=== PATIENT | male | born 1960 | race Caucasian/White ===

== ENCOUNTER 2018-08-01 14:47 | Emergency (ER) | payer MEDICAID, OTHER ==
[~2018-08-01] VITALS: Ht 175.3 cm; Wt 93.3 kg
[2018-08-01 14:56] VITALS: Ht 175.3 cm; Wt 93.3 kg
--- NOTE | 2018-08-01 16:15 | ERD ---
ER Documentation Chief Complaint Chief Complaint R index finger lac from box spinner X 1 hr ago HPI 57-year-old male, right-handed, presents to the emergency department, complaining of open wound of the right index finger that occurred approximately 1 hour ago with a box spinner. The patient denies distal weakness, numbness or tingling. The bleeding stopped spontaneously. ROS All systems reviewed and are negative except as per history of present illness. Medications Home Meds Active Scripts Ibuprofen* (Motrin*) 400 Mg Tab, 400 MG PO Q8, #15 TAB Prov:EMANUEL CHEATHAM MD 08/01/18 Cephalexin* (Keflex*) 500 Mg Capsule, 500 MG PO BID for 5 Days, CAP Prov:EMANUEL CHEATHAM MD 08/01/18 Allergies Allergies: Coded Allergies: No Known Allergy (Unverified , 08/01/18) PMhx/Soc History of Surgery: Yes (tumor removal on left kidney) Anesthesia Reaction: No Hx Miscellaneous Medical Probl: Yes (hx CA left kidney) Hx Alcohol Use: No Hx Substance Use: No Hx Tobacco Use: No Smoking Status: Never smoker FmHx Family History: No diabetes, No coronary disease Physical Exam Vitals Vital Signs Date Temp Pulse Resp B/P (MAP) Pulse Ox O2 O2 Flow FiO2 Time Delivery Rate 08/01/18 88 16 171/90 98 Room Air 17:00 (117) 08/01/18 97.9 84 18 173/91 97 14:56 (118) Physical Exam Const: No acute distress Head: Atraumatic Eyes: Normal Conjunctiva ENT: Normal External Ears, Nose and Mouth. Neck: Full range of motion. No meningismus. Resp: Clear to auscultation bilaterally Cardio: Regular rate and rhythm, no murmurs Abd: Soft, non tender, non distended. Normal bowel sounds Skin: Right index finger: 1 cm linear laceration in the distal phalanx. Normal range of motion, no tendon involvement, distal neurovascular exam intact Back: No midline or flank tenderness Ext: No cyanosis, or edema Neur: Awake and alert Psych: Normal Mood and Affect Procedures/MDM Vital signs stable, low suspicion for tendon injury, open fracture, foreign body. Neurovascular exam intact. Procedure: Laceration repair The procedure was explained and consent obtained. Anesthesia: none Location: Right index finger Tendon/Joint/Nerves: No injury Foreign body: None detected after copious irrigation and exploration Technique: Tissue adhesive Complexity: No subcutaneous sutures/mucosal repair/edge excision Post Closure Length: 1 cm The patient tolerated the procedure well without complications. clinical impression and possible complications like infection and a scar where discussed with the the patient who agree with management. The patient is stable to be treated outpatient and will be discharged home with a Rx for ibuprofen and cephalexin, some side effects of prescribed medications (headache, rash, nausea, vomiting, diarrhea, interactions with other medications) were reviewed. The patient was instructed to follow up with the primary care provider in the next 48h. If symptoms persist, worsen or new symptoms develop, then patient should return to the ED immediately. Instructions explained and given directly by me to the patient with acknowledgment and demonstrated understanding. Disclaimer: Inadvertent spelling and grammatical errors are likely due to EHR/dictation software use and do not reflect on the overall quality of patient care. Also, please note that the electronic time recorded on this note does not necessarily reflect the actual time of the patient encounter. Departure Diagnosis: Primary Impression: Laceration of index finger of right hand without complication Condition: Stable Additional Instructions: Thank you very much for allowing us to participate in your care. Your health and safety is our top priority at [facility]. Call your primary care doctor TOMORROW for an appointment during the next 2-4 days and bring all the information and medications prescribed. Have prescriptions filled and follow precisely the directions on the label. If the symptoms get worse and your provider is unavailable, return to the Emergency Department immediately. EMANUEL CHEATHAM MD Aug 01, 2018 16:15
[2018-08-01] MEDS ORDERED: IBUP-1561 PO (16:17)
[2018-08-01] MEDS ORDERED: CEPH-443 PO (16:17)
[2018-08-01 17:00] VITALS: BP 171/90; PULSE 88; RESP 16
== END 2018-08-01 17:05 | disposition home or self-care (01) ==
LOC: FTE 14:47
DX: S61.210A Laceration without foreign body of right index finger without damage to nail, initial encounter (principal); W26.8XXA Contact with other sharp object(s), not elsewhere classified, initial encounter; Y92.9 Unspecified place or not applicable; Z85.528 Personal history of other malignant neoplasm of kidney
CPT/HCPCS: 12001; Z7502

== ENCOUNTER 2019-02-03 23:40 | Emergency (ER) | payer MEDICAID ==
[~2019-02-03] VITALS: Ht 175.3 cm; Wt 93.1 kg
[~2019-02-03 23:40] MED LIST: ACET500C5 PO; CEPH-443 PO; IBUP-1561 PO; NAPR-985 PO
[2019-02-03 23:44] VITALS: BP 144/82; PULSE 99; RESP 20; Ht 175.3 cm; Wt 93.1 kg
[2019-02-04] MEDS ORDERED: KETOROLAC 30 MG INJ IM STA (03:16)
[2019-02-04] MEDS ORDERED: DEXAMETHASONE 10 MG/ML 1 ML INJ IM ONE (03:30)
--- NOTE | 2019-02-05 06:09 | ERD ---
ER Documentation Chief Complaint Chief Complaint PT REPORTS BILATERAL KNEE PAIN X 6 YEARS HPI 58-year-old male presents to the emergency department complaining of bilateral knee pain for 6 years. He had a acute exacerbation yesterday. Walking exacerbates the pain. He tried no medication for relief of symptoms. He has no pain at rest. He has had MRIs of the knees in the past. He denies any fevers, chills, or other symptoms at this time. ROS All systems reviewed and are negative except as per history of present illness. Medications Home Meds Active Scripts Naproxen* (Naprosyn*) 500 Mg Tablet, 500 MG PO BID PRN for PAIN AND/OR INFLAMMA TION, #30 TAB Prov:JOHNY ESPAÑA PA-C 02/04/19 Ibuprofen* (Motrin*) 400 Mg Tab, 400 MG PO Q8, #15 TAB Prov:EMANUEL CHEATHAM MD 08/01/18 Cephalexin* (Keflex*) 500 Mg Capsule, 500 MG PO BID for 5 Days, CAP Prov:EMANUEL CHEATHAM MD 08/01/18 Allergies Allergies: Coded Allergies: No Known Allergy (Unverified , 08/01/18) PMhx/Soc History of Surgery: Yes (tumor removal on left kidney) Anesthesia Reaction: No Hx Miscellaneous Medical Probl: Yes (hx CA left kidney) Hx Alcohol Use: No Hx Substance Use: No Hx Tobacco Use: No Smoking Status: Never smoker FmHx Family History: No diabetes Physical Exam Vitals Vital Signs Date Temp Pulse Resp B/P (MAP) Pulse Ox O2 O2 Flow FiO2 Time Delivery Rate 02/03/19 98.3 99 20 144/82 97 23:44 (102) Physical Exam Const: No acute distress Head: Atraumatic Eyes: Normal Conjunctiva ENT: Normal External Ears, Nose and Mouth. Neck: Full range of motion. No meningismus. Resp: Clear to auscultation bilaterally Cardio: Regular rate and rhythm, no murmurs Abd: Soft, non tender, non distended. Normal bowel sounds Skin: No petechiae or rashes Back: No midline or flank tenderness Ext: mild subjective tenderness palpation of the bilateral anterior knees. Negative anterior and posterior drawer test. No obvious joint effusions. Neur: Awake and alert Psych: Normal Mood and Affect Results 24 hrs Current Medications Medications Dose Sig/Christy Start Time Status Last (Trade) Ordered Route PRN Stop Time Admin Dose Reason Admin Ketorolac 30 mg ONCE STAT 02/04/19 DC 02/04/19 Tromethamine IM 03:16 02/04/19 03:27 (Toradol) 03:17 10 mg ONCE ONCE 02/04/19 DC 02/04/19 Dexamethasone IM 03:30 02/04/19 03:27 (Decadron) 03:31 Procedures/MDM 58-year-old male presents to the emergency department with signs and symptoms most consistent with arthritis of the knees bilaterally. No evidence to suggest DVT, cellulitis, fracture, compartment syndrome, or other emergent process. Patient was administered Decadron and Toradol in the department with his significant improvement of his symptoms. He is otherwise stable for discharge for further outpatient follow-up with orthopedic physician. Patient advised to return immediately for any new or concerning symptoms. I shared my medical decision making with the patient and he understands and agrees with the plan. Patient's blood pressure was elevated (>120/80) but appears stable without evidence of hypertension emergency or urgency. The patient is to follow-up and pursue outpatient monitoring and therapy with their primary care physician within 1 week and return immediately if they have any new, worsening, or c oncerning symptoms. Departure Diagnosis: Primary Impression: Bilateral knee pain Chronicity: chronic Qualified Codes: M25.561 - Pain in right knee; M25.562 - Pain in left knee; G89.29 - Other chronic pain Condition: Fair Patient Instructions: Knee Pain, Uncertain Cause Referrals: [facility] YOU HAVE RECEIVED A MEDICAL SCREENING EXAM AND THE RESULTS INDICATE THAT YOU DO NOT HAVE A CONDITION THAT REQUIRES URGENT TREATMENT IN THE EMERGENCY DEPARTMENT. FURTHER EVALUATION AND TREATMENT OF YOUR CONDITION CAN WAIT UNTIL YOU ARE SEEN IN YOUR DOCTORS OFFICE WITHIN THE NEXT 1-2 DAYS. IT IS YOUR RESPONSIBILITY TO MAKE AN APPOINTMENT FOR FOLOW-UP CARE. IF YOU HAVE A PRIMARY DOCTOR --you should call your primary doctor and schedule an appointment IF YOU DO NOT HAVE A PRIMARY DOCTOR YOU CAN CALL OUR PHYSICIAN REFERRAL HOTLINE AT IF YOU CAN NOT AFFORD TO SEE A PHYSICIAN YOU CAN CHOSE FROM THE FOLLOWING [facility] [address] [facility]. [facility] [address] [facility]. [facility] [address] [facility]. [facility] [address] [facility] [address] [facility]. [facility] [address] Additional Instructions: Call your primary care doctor TOMORROW for an appointment during the next 1-2 days.See the doctor sooner or return here if your condition worsens before your appointment time. JOHNY ESPAÑA PA-C Feb 05, 2019 06:09
== END 2019-02-04 04:19 | disposition home or self-care (01) ==
LOC: FTE 23:40
DX: M25.561 Pain in right knee (principal); M25.562 Pain in left knee; G89.29 Other chronic pain; Z85.528 Personal history of other malignant neoplasm of kidney
CPT/HCPCS: 96372; J1100; J1885; Z7502

== ENCOUNTER 2019-02-22 05:27 | Emergency (ER) | payer MEDICAID ==
[~2019-02-22] VITALS: Ht 172.7 cm; Wt 90.8 kg
[2019-02-22 05:29] VITALS: BP 147/90; PULSE 105; RESP 19; Ht 172.7 cm; Wt 90.8 kg
[2019-02-22] MEDS ORDERED: KETOROLAC 30 MG INJ IM STA (06:21)
[2019-02-22] MEDS ORDERED: DEXAMETHASONE 10 MG/ML 1 ML INJ IM ONE (06:30)
== END 2019-02-22 06:42 | disposition home or self-care (01) ==
LOC: FTE 05:27
DX: M24.561 Contracture, right knee (principal); M24.562 Contracture, left knee; Z85.528 Personal history of other malignant neoplasm of kidney
CPT/HCPCS: 96372; J1100; J1885; Z7502